=== PATIENT | male | born 1945 | race Caucasian/White ===

== ENCOUNTER → 2017-01-08 | Outpatient (CLI) | payer MEDICARE, BC ==
[~2017-01-08] MED LIST: ASPIR 8181 MG PO; BRILINTA90 MG PO; COREG6.25 MG PO; COZAAR100 MG PO; CRESTOR20 MG PO; GLUCOPHAGE1000 MG PO; GLUCOTROL XL 22.5 MG PO; HYDROCHLOROTHIA25 MG PO; LASIX40 MG PO; LISINOPRIL40 MG PO; LOSARTAN-HCTZ1 EAC1 PO; MELOXICAM7.5 MG PO; OMEPRAZOLE40 MG PO; RANEXA500 MG PO; VITAMIN D32000 UNI1 PO
== END ==
LOC: KOH-I 11:39
DX: R05 Cough (principal)
CPT/HCPCS: 71020

== ENCOUNTER → 2017-01-20 | Outpatient (CLI) | payer MEDICARE, BC | LOC: KOH-I 15:24 | DX: R06.02 Shortness of breath (principal); R05 Cough | CPT/HCPCS: 71020 ==